=== PATIENT | female | born 1985 | race Caucasian/White ===

== ENCOUNTER 2017-03-22 14:29 | Emergency (ER) | payer SELFPAY ==
[~2017-03-22] VITALS: Ht 172.7 cm; Wt 65.0 kg
[2017-03-22 14:35] VITALS: BP 118/74; PULSE 102; RESP 16; TEMP 99.4; O2SAT 99
[2017-03-22] MEDS ORDERED: IBUPROFEN 400 MG TAB PO ONE (15:00)
--- NOTE | 2017-03-22 15:00 | PD ---
HPI . Upper respiratory symptoms X 6 days Chief Complaint: Cold / Flu Symptoms Time Seen by Provider: 14:46 Travel History International Travel<30 days: No Contact w/Intl Traveler<30days: No Traveled to known affect area: No History of Present Illness HPI 31-year-old female presents emergency department for evaluation of fever, malaise, chills, runny nose, sore throat 6 days. Patient states she has not taken any medication since last night when she took a multi symptom cold medication. 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 Patient has no major medical history and doesn't take any daily medication. Patient denies any chest pain, shortness breath, nausea, vomiting, chills, diarrhea. Patient states the only symptoms that persist at this time or body aches. PFSH Past Medical History Medical History: Denies Significant Hx Asthma: Yes Diabetes: No Diminished Hearing: No Respiratory: Yes (ASTHMA) Immunizations Current: No Tetanus Vaccination: Unknown Influenza Vaccination: No ?: Not LMP: 3 WEEKS AGO Menopausal: No : 2 Para: 0 Miscarriage: 2 : 0 Dilation and Curettage (D&C): Yes Past Surgical History Gynecologic Surgery: Yes (D AND C , NOVEMBER 02, 2007-DUE TO INCOMPLETE MISCARRIAGE. ) Social History Alcohol Use: Yes (SOCIAL) Tobacco Use: No Substance Use: No Allergies-Medications (Allergen,Severity, Reaction): Coded Allergies: Sulfa (Sulfonamide Antibiotics) (Unverified Allergy, Severe, 03/22/17) penicillin G (Unverified Allergy, Severe, HIVES, 03/22/17) Reported Meds & Prescriptions Reported Meds & Active Scripts Active No Active Prescriptions or Reported Medications Review of Systems Except as stated in HPI: all other systems reviewed are Neg Physical Exam Narrative GENERAL: Well-nourished, well-developed 31-year-old female patient in no acute distress. Nontoxic appearing. SKIN: Focused skin assessment warm/dry. HEAD: Normocephalic. Atraumatic. EYES: No scleral icterus. No injection or drainage. THROAT: No pharyngeal injection, exudates, or tonsillar hypertrophy. Airway is patent. ENT: Mucosa pink and moist. No erythema or exudates. No uvular edema. No uvular , palatal, or tonsillar deviation. Airway patent. Nasal turbinates appear normal without nasal blood, purulent drainage or septal hematoma. NECK: Supple, trachea midline. No JVD or lymphadenopathy. CARDIOVASCULAR: Regular rate and rhythm without murmurs, gallops, or rubs. RESPIRATORY: Breath sounds equal bilaterally. No accessory muscle use. GASTROINTESTINAL: Abdomen soft, non-tender, nondistended. MUSCULOSKELETAL: No cyanosis, or edema. BACK: Nontender without obvious deformity. No CVA tenderness. Data Data Last Documented VS Vital Signs Date Time Temp Pulse Resp B/P (MAP) Pulse Ox O2 Delivery O2 Flow Rate FiO2 03/22/17 14:47 99 Room Air 03/22/17 14:35 99.4 102 16 118/74 (89) [facility] Medical Decision Making Medical Screen Exam Complete: Yes Emergency Medical Condition: Yes Differential Diagnosis Differential diagnoses include but not limited to URI, viral syndrome, pharyngitis Narrative Course 31-year-old female presents emergency department for evaluation of cold and flu symptoms that have persisted for 6 days. She has not taken any medication today and she does not have fever in triage although her temperature is noted to be slightly elevated. Patient denies any cough, chills, chest pain, shortness breath, abdominal pain, nausea, vomiting, diarrhea. Patient's physical exam is unremarkable. Patient states only symptoms persist is malaise. Patient needs a work note to return to work tomorrow. 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 Patient will be given ibuprofen and our facility to help with her body aches and discharged home with a work note that specifies that she is safe to return when fever free for 24 hours. Diagnosis Primary Impression: Viral syndrome Patient Instructions: General Instructions, Viral Syndrome (DC) Departure Forms: Tests/Procedures, Work Release Special Instructions: Safe to return to work when fever free 24 hours Additional Instructions: Please return to emergency department if your symptoms return or worsen. Follow up with your primary care provider. Safe to return to work when fever free 24 hours. Scripts No Active Prescriptions or Reported Meds Disposition: 01 DISCHARGE HOME Condition: Stable Susanna Hale CAMILLA Mar 22, 2017 14:59
== END 2017-03-22 15:10 | disposition home or self-care (01) ==
LOC: PHEFT 14:29
DX: B34.9 Viral infection, unspecified (principal)
CPT/HCPCS: 99282

== ENCOUNTER 2017-07-16 02:29 | Emergency (ER) | payer SELFPAY ==
[~2017-07-16] VITALS: Ht 170.2 cm; Wt 69.4 kg
[2017-07-16 02:30] VITALS: BP 115/66; PULSE 117; RESP 16; TEMP 98.1; O2SAT 98
--- NOTE | 2017-07-16 03:34 | RADRPT ---
EXAM DATE/TIME: 07/16/2017 03:01 [facility] COMPARISON: CHEST PA & LAT, September 17, 2010, 14:03. INDICATIONS : Left lower chest pain. MEDICAL HISTORY : None. SURGICAL HISTORY : None. ENCOUNTER: Initial ACUITY: 1 day PAIN SCORE: 5/10 LOCATION: Left lower chest FINDINGS: PA and lateral views of the chest demonstrate the lungs to be symmetrically aerated without evidence of mass, infiltrate or effusion. The cardiomediastinal contours are unremarkable. Osseous structure s are intact. CONCLUSION: No acute disease. Nelson Doran MD on July 16, 2017 at 3:32 Board Certified Radiologist. This report was verified electronically.
[2017-07-16 03:57] VITALS: BP 111/64; PULSE 87; RESP 16; O2SAT 97
--- NOTE | 2017-07-16 03:59 | PD ---
HPI Chief Complaint: Flank/Kidney Pain Time Seen by Provider: 02:55 Travel History International Travel<30 days: No Contact w/Intl Traveler<30days: No Traveled to known affect area: No History of Present Illness HPI 32-year-old female presents to the emergency department for 2 days of intermittent spasm-like anterior chest wall discomfort that at times is 8/10 intensity and presently is 0/10 in intensity. Patient denies any injury or fall. Patient denies chest pain or shortness of breath no pleuritic pain. No hemoptysis. No recent long distance travel obstructive bedrest surgery or injury. Patient does not take control pills and does not smoke cigarettes. Patient had no lower extremity pain or swelling. No fever no chills no dysuria frequency urgency flank pain hematuria nausea vomiting or shortness of breath PFSH Past Medical History Narrative Medical Asthma D&C occasional alcohol use; nursing notes reviewed Asthma: Yes Diabetes: No Diminished Hearing: No Respiratory: Yes (Asthma) Immunizations Current: No Tetanus Vaccination: > 5 Years Influenza Vaccination: No ?: Not LMP: 07/15/2017 Menopausal: No : 2 Para: 0 Miscarriage: 2 : 0 Dilation and Curettage (D&C): Yes Past Surgical History Gynecologic Surgery: Yes (D AND C , NOVEMBER 02, 2007-DUE TO INCOMPLETE MISCARRIAGE. ) Social History Alcohol Use: Yes (SOCIAL) Tobacco Use: No Substance Use: No Allergies-Medications (Allergen,Severity, Reaction): Coded Allergies: Sulfa (Sulfonamide Antibiotics) (Unverified Allergy, Severe, 07/16/17) penicillin G (Unverified Allergy, Severe, HIVES, 07/16/17) Reported Meds & Prescriptions Reported Meds & Active Scripts Active No Active Prescriptions or Reported Medications Review of Systems Except as stated in HPI: all other systems reviewed are Neg Physical Exam Narrative GENERAL: Well-developed well-nourished female no acute distress or respiratory distress SKIN: Warm and dry. HEAD: Normocephalic. EYES: No scleral icterus. No injection or drainage. NECK: Supple, trachea midline. No JVD or lymphadenopathy. CARDIOVASCULAR: Regular rate and rhythm without murmurs, gallops, or rubs. Chest wall: Anterior chest wall reproducible pain without crepitus or ecchymosis induration erythema or bony abnormality no rash no vesicles RESPIRATORY: Breath sounds equal bilaterally. No accessory muscle use. GASTROINTESTINAL: Abdomen soft, non-tender, nondistended. MUSCULOSKELETAL: No cyanosis, or edema. BACK: Nontender without obvious deformity. No CVA tenderness. Data Data Last Documented VS Vital Signs Date Time Temp Pulse Resp B/P (MAP) Pulse Ox O2 Delivery O2 Flow Rate FiO2 07/16/17 02:30 98.1 117 16 115/66 (82) 98 Orders Orders Chest, Pa & Lat (07/16/17 ) Electrocardiogram (07/16/17 ) Ed Discharge Order (07/16/17 03:53) MDM Medical Decision Making Medical Screen Exam Complete: Yes Emergency Medical Condition: Yes Medical Record Reviewed: Yes Interpretation(s) poc hcg: negative Last Impressions Chest X-Ray 07/16/17 0000 Signed Impressions: Service Date/Time: Sunday, July 16, 2017 03:01 - CONCLUSION: No acute disease. Nelson Doran MD Vital Signs Date Time Temp Pulse Resp B/P (MAP) Pulse Ox O2 Delivery O2 Flow Rate FiO2 07/16/17 02:30 98.1 117 16 115/66 (82) 98 Differential Diagnosis Musculoskeletal pain, costochondritis, pleurisy, abdominal wall contusion, rib fracture, chest wall pain, atypical pneumonia, pneumothorax, shingles, atypical chest pain, ACS positive consider PE Narrative Course Patient with reproducible anterior chest wall pain that reproduces pain presentation EKG and chest x-ray ordered EKG sinus rhythm with no acute ST elevation injury pattern Chest x-ray shows no acute abnormality [id number] hCG is negative Diagnosis Primary Impression: Chest wall pain Referrals: Primary Care Physician call for appointment Patient Instructions: General Instructions Additional Instructions: Take ibuprofen/Advil/Motrin 600 mg as often as every 6-8 hours as needed for pain associated inflammation Follow-up with primary care provider Return to the emergency department for any concerns or change in condition May take acetaminophen/Tylenol every 4-6 hours as needed for minor pain or for fever 100.4F or greater May apply warm compresses to area Increase fluid hydration Med/Other Pt SpecificInfo: No Meds Exist/No RX given Scripts No Active Prescriptions or Reported Meds Disposition: 01 DISCHARGE HOME Condition: Stable Angela Saucedo MD Jul 16, 2017 03:59
--- NOTE | 2017-07-16 11:03 | EKG ---
Date Performed: 07/16/2017 Time Performed: 03:02:19 PTAGE: 32 years EKG: Sinus rhythm WITH SINUS ARRHYTHMIA NORMAL ECG Since the prior tracing, there has been no significant change PREVIOUS TRACING : 09/17/2010 14.04 DOCTOR: David Bess Interpretating Date/Time 07/16/2017 11:00:26
== END 2017-07-16 04:34 | disposition home or self-care (01) ==
LOC: PHED 02:29
DX: R07.89 Other chest pain (principal); I49.9 Cardiac arrhythmia, unspecified; J45.909 Unspecified asthma, uncomplicated
CPT/HCPCS: 71046; 93005; 99284